=== PATIENT | female | born 1975 | race Caucasian/White ===

== ENCOUNTER 2018-11-12 19:23 | Emergency (ER) | payer OTHER, BC ==
[2018-11-12] MEDS ORDERED: Ketorolac 60 MG/2 ML SDV IM ONE (19:50)
--- NOTE | 2018-11-12 19:54 | EDM.PDOC ---
ED HPI GENERAL MEDICAL PROBLEM - General Chief Complaint: Back Pain or Injury Stated Complaint: PT KATERIN BACK Time Seen by Provider: 11/12/18 19:44 - History of Present Illness INITIAL COMMENTS - FREE TEXT/NARRATIVE: HISTORY AND PHYSICAL: History of present illness: The patient is a 43-year-old female who presents from work after she was doing some lifting and felt a pop and pain in her mid to upper lower back. She says she has had backaches before but this was different and she is concerned. The pain is radiating up and down her spine but is more localized in the lower thoracic area. She has no chest pain or shortness of breath no neurosensory changes or weakness in her arms and legs and no bowel or bladder disturbances. She was not struck by anything nor did she fall. She has not taken anything for pain for this prior to coming here. She has a history of a bilateral tubal ligation and she says she was in her usual state of good health prior to these events Review of systems: As per history of present illness and below otherwise all systems reviewed and negative. Past medical history: As per history of present illness and as reviewed below otherwise noncontributory. Surgical history: As per history of present illness and as reviewed below otherwise noncontributory. Social history: No reported history of drug or alcohol abuse. Family history: As per history of present illness and as reviewed below otherwise noncontributory. Physical exam: General: Well-developed well-nourished female who is nontoxic and ambulated into the ED without assistance. Vital signs were noted by me HEENT: Atraumatic, normocephalic, negative for conjunctival pallor or scleral icterus, mucous membranes moist, throat clear, neck supple, nontender, trachea midline. Lungs: Clear to auscultation, breath sounds equal bilaterally, chest nontender. Heart: S1S2, regular rate and rhythm no overt murmurs Abdomen: Soft, nondistended, nontender. NABS Negative for costovertebral tenderness. Pelvis: Deferred Genitourinary: Deferred. Rectal: Deferred. Extremities: Atraumatic, negative for cords or calf pain. Neurovascular unremarkable. Neuro: Awake, alert, oriented. Cranial nerves II through XII unremarkable. Cerebellum unremarkable. Motor and sensory unremarkable throughout. Exam nonfocal. Dorsi and plantar flexion is intact 5/5 inclusive of the great toe and tone is normal throughout all extremities. There are no deficits or lateralizing signs. Back: There are no midline step-offs or defects of the thoracic or lumbar spine no posterior or posterior pelvis tenderness. There is some bilateral paraspinal tenderness and midline tenderness in the lower thoracic and upper lumbar area without defects deformities or soft tissue changes. Diagnostics: Thoracic and lumbar spine x-rays Therapeutics: Toradol Impression: Acute back strain/musculoskeletal sprain Definitive disposition and diagnosis as appropriate pending reevaluation and review of above. Back Pain Score (Numeric/FACES): 7 - Related Data Allergies Allergy/AdvReac Type Severity Reaction Status Date / Time No Known Allergies Allergy Verified 11/12/18 19:44 Home Meds: Home Meds . [No Known Home Meds] 11/12/18 [History] ED ROS GENERAL - Review of Systems Review Of Systems: ROS reveals no pertinent complaints other than HPI. ED EXAM, GENERAL - Physical Exam Exam: See Below (See dictation) Course - Vital Signs Last Recorded V/S: Last Vital Signs Temp 36.8 C 11/12/18 19:40 Pulse 80 11/12/18 19:40 Resp BP 133/79 11/12/18 19:40 Pulse Ox 97 11/12/18 19:40 - Orders/Labs/Meds Meds: Medications Discontinued Medications Generic Name Dose Route Start Last Admin Trade Name Dimitri PRN Reason Stop Dose Admin Ketorolac Tromethamine 60 mg 11/12/18 19:50 11/12/18 20:01 Toradol IM 11/12/18 19:51 60 mg ONETIME ONE Administration Departure - Departure Time of Disposition: 20:57 Disposition: Home, Self-Care 01 Condition: Good Clinical Impression: Musculoskeletal back pain Back pain Qualifiers: Back pain location: thoracic back pain Chronicity: acute Back pain laterality: unspecified Qualified Code(s): M54.6 - Pain in thoracic spine - Discharge Information Referrals: PCP,None [Primary Care Provider] - Forms: ED Department Discharge Additional Instructions: The following information is given to patients seen in the emergency department who are being discharged to home. This information is to outline your options for follow-up care. We provide all patients seen in our emergency department with a follow-up referral. The need for follow-up, as well as the timing and circumstances, are variable depending upon the specifics of your emergency department visit. If you don't have a primary care physician on staff, we will provide you with a referral. We always advise you to contact your personal physician following an emergency department visit to inform them of the circumstance of the visit and for follow-up with them and/or the need for any referrals to a consulting specialist. The emergency department will also refer you to a specialist when appropriate. This referral assures that you have the opportunity for followup care with a specialist. All of these measure are taken in an effort to provide you with optimal care, which includes your followup. Under all circumstances we always encourage you to contact your private physician who remains a resource for coordinating your care. When calling for followup care, please make the office aware that this follow-up is from your recent emergency room visit. If for any reason you are refused follow-up, please contact the [facility] emergency department at and ask to speak to the emergency department charge nurse. [facility] Primary care- Internal Medicine and Family [place] [phone] Use ice on the area for the next 24 hours and then alternate ice and heat subsequently. His medications you have been given from [facility], diclofenac and Flexeril for the discomfort. Only take the muscle relaxer, Flexeril, when you're home as it may make you drowsy and he should not be at work out in about or driving a car. Please call and schedule a follow-up appointment with one of our clinic providers for reevaluation and further care and return to ER as needed next. The pain will slowly improve over the next several days to one week. Do all Activities more slowly as you do not want to re-aggravate the area.
--- NOTE | 2018-11-12 20:51 | CR ---
INDICATION: Pain. TECHNIQUE: Two views. IMPRESSION: Mild dextroscoliosis centered T8. No fracture. No bone lesion. Lateral alignment is anatomic. Dictated by Byron Limon MD @ Nov 12 2018 8:48PM Signed by Dr. Byron Limon @ Nov 12 2018 8:48PM
--- NOTE | 2018-11-12 20:55 | CR ---
INDICATION: Back pain TECHNIQUE: Lumbar spine 3 view COMPARISON: None FINDINGS: Bones: Moderate rotoscoliosis. Alignment is otherwise within normal limits. No fracture or bone lesion. Joints: Disc spaces and facets are unremarkable. Soft tissues: Unremarkable. IMPRESSION: Moderate rotoscoliosis. Otherwise unremarkable lumbar spine. Dictated by Abe Baker MD @ Nov 12 2018 8:53PM Signed by Dr. Abe Baker @ Nov 12 2018 8:54PM
== END 2018-11-12 21:21 | disposition home or self-care (01) ==
LOC: MW.ED 19:23
DX: M54.5 Low back pain (principal)
CPT/HCPCS: 72070; 72100; 96372; 99283; J1885

== ENCOUNTER 2019-08-20 17:17 | Emergency (ER) | payer OTHER, BC ==
[2019-08-20] MEDS ORDERED: Sodium Chloride 0.9% 2.5 ML Syringe FLUSH PRN (17:41)
[2019-08-20] MEDS ORDERED: Sodium Chloride 0.9% 10 ML Syringe FLUSH PRN (17:41)
[2019-08-20] MEDS ORDERED: Sodium Chloride 0.9% 1,000 ML IV ONE (17:41)
--- NOTE | 2019-08-20 17:42 | EDM.PDOC ---
ED HPI GENERAL MEDICAL PROBLEM - General Chief Complaint: Back Pain or Injury Stated Complaint: LEFT BACK PAIN Time Seen by Provider: 08/20/19 17:41 Source of Information: Reports: Patient History Limitations: Reports: No Limitations - History of Present Illness INITIAL COMMENTS - FREE TEXT/NARRATIVE: HISTORY AND PHYSICAL: History of present illness: Patient is a 44-year-old female presents to the ED with complaint of left flank pain. Patient states this morning she was having dull left mid back pain and states it progressively became more severe and radiating to her left upper abdomen. She states the pain is causing her to become nauseous but denies vomiting or diarrhea. She states she had a normal nonbloody bowel movement this morning. She states the pain is worse with a deep breath but denies chest pain, cough, shortness of breath, fevers, chills. She reports history of and tubal ligation. Smokes 1/2 ppd x 20+ years. Drinks 1-2 beers daily. Denies significant past medical history. Review of systems: As per history of present illness and below otherwise all systems reviewed and negative. Past medical history: As per history of present illness and as reviewed below otherwise noncontributory. Surgical history: As per history of present illness and as reviewed below otherwise noncontributory. Social history: No reported history of drug or alcohol abuse. Family history: As per history of present illness and as reviewed below otherwise noncontributory. Physical exam: General: Patient sitting comfortably in no acute distress and nontoxic appearing HEENT: Atraumatic, normocephalic, pupils reactive, negative for conjunctival pallor or scleral icterus, mucous membranes moist, throat clear, neck supple, nontender, trachea midline. No meningeal signs. Lungs: Clear to auscultation, breath sounds equal bilaterally, left posterior and lateral tenderness to palpation. Heart: S1S2, regular, negative for clicks, rubs, or overt murmur. Abdomen: Mild LUQ tenderness to palpation. Soft, nondistended. Negative for masses or hepatosplenomegaly. Negative for costovertebral tenderness. No rigidity, rebound, guarding. Pelvis: Stable nontender. Genitourinary: Deferred. Rectal: Deferred. Skin: no rash appreciated Extremities: Atraumatic, negative for cords or calf pain. Neurovascular unremarkable. Neuro: Awake, alert, oriented. Cranial nerves II through XII unremarkable. Cerebellum unremarkable. Motor and sensory unremarkable throughout. Exam nonfocal. Notes: Diagnostics: CBC, CMP, lipase, UA Therapeutics: 1L NS IV Declined pain medication Prescriptions: Cipro, Tramadol Impression: UTI, abdominal pain Plan: Drink plenty of fluids and take antibiotic as directed. Alternate tylenol and motrin as needed, you may take tramadol as needed for severe pain Follow up with primary care provider Return to ED as needed as discussed Definitive disposition and diagnosis as appropriate pending reevaluation and review of above. Left Back Pain Score (Numeric/FACES): 8 - Related Data Allergies Allergy/AdvReac Type Severity Reaction Status Date / Time No Known Allergies Allergy Verified 08/20/19 17:21 Home Meds: Home Meds Ciprofloxacin HCl [Cipro] 500 mg PO BID 10 Days #20 tablet 08/20/19 [Rx] traMADol [Ultram] 50 mg PO Q6H PRN #12 tab 08/20/19 [Rx] Past Medical History HEENT History: Reports: None Cardiovascular History: Reports: None Respiratory History: Reports: None Gastrointestinal History: Reports: None [employer] History: Reports: Psychiatric History: Reports: Depression - Infectious Disease History Infectious Disease History: Reports: Chicken Pox - Past Surgical History Female Surgical History: Reports: Section, Tubal Ligation Social & Family History - Family History Family Medical History: Noncontributory - Tobacco Use Smoking Status *Q: Current Every Day Smoker Years of Tobacco use: 20 Packs/Tins Daily: 1 - Caffeine Use Caffeine Use: Reports: Coffee - Recreational Drug Use Recreational Drug Use: No ED ROS GENERAL - Review of Systems Review Of Systems: Comprehensive ROS is negative, except as noted in HPI. ED EXAM,LOWER BACK PAIN/INJURY - Physical Exam Exam: See Below (see dictation) Course - Vital Signs Last Recorded V/S: Last Vital Signs Temp 99.0 F 08/20/19 19:00 Pulse 71 08/20/19 19:00 Resp 18 08/20/19 19:00 BP 124/81 08/20/19 19:00 Pulse Ox 96 08/20/19 19:00 - Orders/Labs/Meds Orders: Active Orders 24 hr Category Date Time Status Sodium Chloride 0.9% [Saline Flush] Med 08/20/19 17:41 Active 10 ml FLUSH ASDIRECTED PRN Sodium Chloride 0.9% [Saline Flush] Med 08/20/19 17:41 Active 2.5 ml FLUSH ASDIRECTED PRN Saline Lock Insert [OM.PC] Stat Oth 08/20/19 17:41 Ordered Medication Orders Sodium Chloride (Saline Flush) 10 ml FLUSH ASDIRECTED PRN PRN Reason: Keep Vein Open Last Admin: 08/20/19 19:01 Dose: 10 ml Sodium Chloride (Saline Flush) 2.5 ml FLUSH ASDIRECTED PRN PRN Reason: Keep Vein Open Last Admin: 08/20/19 19:01 Dose: 2.5 ml Labs: Laboratory Tests 08/20/19 08/20/19 08/20/19 Range/Units 17:27 17:56 17:56 WBC 8.08 (4.0-11.0) K/uL RBC 4.85 (4.30-5.90) M/uL Hgb 16.2 H (12.0-16.0) g/dL Hct 46.4 H (36.0-46.0) % MCV 95.7 (80.0-98.0) fL MCH 33.4 H (27.0-32.0) pg MCHC 34.9 (31.0-37.0) g/dL RDW Std Deviation 46.2 (28.0-62.0) fl RDW Coeff of Ja 13 (11.0-15.0) % Plt Count 198 (150-400) K/uL MPV 9.70 (7.40-12.00) fL Neut % (Auto) 61.2 (48.0-80.0) % Lymph % (Auto) 33.2 (16.0-40.0) % Lipscomb % (Auto) 4.6 (0.0-15.0) % Eos % (Auto) 0.9 (0.0-7.0) % Baso % (Auto) 0.1 (0.0-1.5) % Neut # (Auto) 5.0 (1.4-5.7) K/uL Lymph # (Auto) 2.7 H (0.6-2.4) K/uL Lipscomb # (Auto) 0.4 (0.0-0.8) K/uL Eos # (Auto) 0.1 (0.0-0.7) K/uL Baso # (Auto) 0.0 (0.0-0.1) K/uL Nucleated RBC % 0.0 /100WBC Nucleated RBCs # 0 K/uL Sodium 143 (136-145) mmol/L Potassium 4.0 (3.5-5.1) mmol/L Chloride 104 (98-107) mmol/L Carbon Dioxide 26.3 (21.0-32.0) mmol/L BUN 15 (7.0-18.0) mg/dL Creatinine 0.9 (0.6-1.0) mg/dL Est Cr Clr Drug Dosing 84.23 mL/min Estimated GFR (MDRD) > 60.0 ml/min Glucose 94 (74-106) mg/dL Calcium 9.4 (8.5-10.1) mg/dL Total Bilirubin 0.6 (0.2-1.0) mg/dL AST 18 (15-37) IU/L ALT 25 (14-63) IU/L Alkaline Phosphatase 55 (46-116) U/L Total Protein 7.5 (6.4-8.2) g/dL Albumin 4.4 (3.4-5.0) g/dL Globulin 3.1 (2.6-4.0) g/dL Albumin/Globulin Ratio 1.4 (0.9-1.6) Lipase 81 (73-393) U/L Urine Color YELLOW Urine Appearance HAZY Urine pH 5.5 (5.0-8.0) Ur Specific Kopperl >= 1.030 (1.001-1.035) Urine Protein NEGATIVE (NEGATIVE) mg/dL Urine Glucose (UA) NEGATIVE (NEGATIVE) mg/dL Urine Ketones TRACE H (NEGATIVE) mg/dL Urine Occult Blood LARGE H (NEGATIVE) Urine Nitrite NEGATIVE (NEGATIVE) Urine Bilirubin SMALL H (NEGATIVE) Urine Ictotest NEGATIVE Urine Urobilinogen 0.2 (<2.0) EU/dL Ur Leukocyte Esterase NEGATIVE (NEGATIVE) Urine RBC 5-10 (0-2/HPF) Urine WBC 0-3 (0-5/HPF) Ur Epithelial Cells FEW (NONE-FEW) Urine Bacteria 1+ H (NEGATIVE) Urine Mucus LIGHT (NONE-MOD) Meds: Medications Generic Name Dose Route Start Last Admin Trade Name Freq PRN Reason Stop Dose Admin Sodium Chloride 10 ml 08/20/19 17:41 08/20/19 19:01 Saline Flush FLUSH 10 ml ASDIRECTED PRN Administration Keep Vein Open Sodium Chloride 2.5 ml 08/20/19 17:41 08/20/19 19:01 Saline Flush FLUSH 2.5 ml ASDIRECTED PRN Administration Keep Vein Open Discontinued Medications Generic Name Dose Route Start Last Admin Trade Name Freq PRN Reason Stop Dose Admin Sodium Chloride 1,000 mls @ 999 mls/hr 08/20/19 17:41 08/20/19 17:59 Normal Saline IV 08/20/19 18:41 999 mls/hr STAT ONE Administration Departure - Departure Time of Disposition: 19:47 Disposition: Home, Self-Care 01 Condition: Good Clinical Impression: UTI (urinary tract infection), Abdominal pain - Discharge Information Referrals: PCP,None [Primary Care Provider] - Forms: ED Department Discharge Additional Instructions: The following information is given to patients seen in the emergency department who are being discharged to home. This information is to outline your options for follow-up care. We provide all patients seen in our emergency department with a follow-up referral. The need for follow-up, as well as the timing and circumstances, are variable depending upon the specifics of your emergency department visit. If you don't have a primary care physician on staff, we will provide you with a referral. We always advise you to contact your personal physician following an emergency department visit to inform them of the circumstance of the visit and for follow-up with them and/or the need for any referrals to a consulting specialist. The emergency department will also refer you to a specialist when appropriate. This referral assures that you have the opportunity for follow-up care with a specialist. All of these measure are taken in an effort to provide you with optimal care, which includes your follow-up. Under all circumstances we always encourage you to contact your private physician who remains a resource for coordinating your care. When calling for follow-up care, please make the office aware that this follow-up is from your recent emergency room visit. If for any reason you are refused follow-up, please contact the [facility] Emergency Department at and asked to speak to the emergency department charge nurse. [facility] Primary Care [address] [place], [place] [phone] [facility] [address] [place] [address] Drink plenty of fluids and take antibiotic as directed. Alternate tylenol and motrin as needed, you may take tramadol as needed for severe pain Follow up with primary care provider Return to ED as needed as discussed Sepsis Event Note - Evaluation Sepsis Screening Result: No Definite Risk - Focused Exam Vital Signs: Vital Signs Temp Pulse Resp BP Pulse Ox 08/20/19 19:00 99.0 F 71 18 124/81 96 08/20/19 17:22 97.3 F 86 20 137/87 96 Date Exam was Performed: 08/20/19 Time Exam was Performed: 19:44 - My Orders Last 24 Hours: My Active Orders 08/20/19 17:41 Sodium Chloride 0.9% [Saline Flush] 10 ml FLUSH ASDIRECTED PRN Sodium Chloride 0.9% [Saline Flush] 2.5 ml FLUSH ASDIRECTED PRN Saline Lock Insert [OM.PC] Stat - Assessment/Plan Last 24 Hours: My Active Orders 08/20/19 17:41 Sodium Chloride 0.9% [Saline Flush] 10 ml FLUSH ASDIRECTED PRN Sodium Chloride 0.9% [Saline Flush] 2.5 ml FLUSH ASDIRECTED PRN Saline Lock Insert [OM.PC] Stat
[2019-08-20 18:27] LABS: BLOOD UREA NITROGEN,BUN 15 mg/dL (7.0-18.0); CARBON DIOXIDE,CO2 26.3 mmol/L (21.0-32.0); CHLORIDE,CL 104 mmol/L (98-107); GLUCOSE RANDOM 94 mg/dL (74-106); LIPASE 81 U/L (73-393); SODIUM,NA 143 mmol/L (136-145)
--- NOTE | 2019-08-20 19:28 | CT ---
CT abdomen and pelvis Technique: Multiple axial sections were obtained from above the dome of the diaphragm inferiorly through the pubic symphysis. Intravenous and oral contrast not utilized. Comparison: Previous CT abdomen and pelvis exam of 01/14/14. Findings: Visualized lung bases show nothing acute. Noncontrast appearance of the liver shows no discrete abnormality. Gallbladder contains no calcified gallstones. Spleen appears within normal limits. Adrenal glands show no discrete abnormality. Pancreas shows no discrete abnormality. Kidneys show no abnormal calcifications. No hydronephrosis is seen. Ureters show no dilatation or abnormal calcifications. Appendix is seen which is normal. No pelvic mass or adenopathy is appreciated. No free fluid or inflammatory change is identified. Bone window settings were reviewed which shows no acute osseous finding. Impression: 1. Nothing acute is appreciated on noncontrast CT study of the abdomen and pelvis. Diagnostic code #1 This report was dictated in [place] Standard Time
[2019-08-20] MEDS ORDERED: Ketorolac 30 MG/ML SDV IVPUSH ONE (19:45)
== END 2019-08-20 20:34 | disposition home or self-care (01) ==
LOC: MW.ED 17:17
DX: N39.0 Urinary tract infection, site not specified (principal); F17.210 Nicotine dependence, cigarettes, uncomplicated
CPT/HCPCS: 36415; 74176; 80053; 81001; 83690; 85025; 96361; 96374; 99284; J1885; J7030; 99283

== ENCOUNTER 2019-12-12 06:57 | Emergency (ER) | payer BC, OTHER ==
[2019-12-12] MEDS ORDERED: Insulin Regular, Human 100 Units/ML 10 ML Vial SUBCUT SCH (07:30)
--- NOTE | 2019-12-12 07:33 | EDM.PDOC ---
ED HPI GENERAL MEDICAL PROBLEM - General Chief Complaint: Lower Extremity Injury/Pain Stated Complaint: LEFT HEEL INJURY Time Seen by Provider: 12/12/19 07:22 Source of Information: Reports: Patient History Limitations: Reports: No Limitations - History of Present Illness INITIAL COMMENTS - FREE TEXT/NARRATIVE: This is a 44-year-old female presents to the emergency room chief complaint of left heel and foot pain. Patient was trying to kick a piece of wood in half last night. Patient was unable to kick the piece of wood and initially had minimal pain in her heel. Patient woke up this morning unable to walk secondary to pain. Patient has no other complaints. Onset: Today Duration: Day(s):, Getting Worse Location: Reports: Lower Extremity, Left Quality: Reports: Ache Severity: Moderate Improves with: Reports: None Worsens with: Reports: Movement Context: Reports: Trauma Left heel Pain Score (Numeric/FACES): 1 - Related Data Allergies Allergy/AdvReac Type Severity Reaction Status Date / Time No Known Allergies Allergy Verified 12/12/19 07:10 Home Meds: Home Meds . 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: Musculoskeletal History: Reports: None Neurological History: Reports: None Psychiatric History: Reports: Depression Endocrine/Metabolic History: Reports: None Hematologic History: Reports: None Immunologic History: Reports: None Oncologic (Cancer) History: Reports: None Dermatologic History: Reports: None - Infectious Disease History Infectious Disease History: Reports: None - Past Surgical History Head Surgeries/Procedures: Reports: None HEENT Surgical History: Reports: None Cardiovascular Surgical History: Reports: None Respiratory Surgical History: Reports: None GI Surgical History: Reports: None Female Surgical History: Reports: Section, Tubal Ligation Endocrine Surgical History: Reports: None Neurological Surgical History: Reports: None Musculoskeletal Surgical History: Reports: None Oncologic Surgical History: Reports: None Dermatological Surgical History: Reports: None Social & Family History - Family History Family Medical History: Noncontributory - Tobacco Use Smoking Status *Q: Current Every Day Smoker Years of Tobacco use: 20 Packs/Tins Daily: 0.5 - Caffeine Use Caffeine Use: Reports: Coffee, Energy Drinks, Soda, Tea - Recreational Drug Use Recreational Drug Use: No Review of Systems - Review of Systems Review Of Systems: See Below Constitutional: Reports: No Symptoms Eyes: Reports: No Symptoms Ears: Reports: No Symptoms Nose: Reports: No Symptoms Mouth/Throat: Reports: No Symptoms Respiratory: Reports: No Symptoms Cardiovascular: Reports: No Symptoms GI/Abdominal: Reports: No Symptoms Genitourinary: Reports: No Symptoms Musculoskeletal: Reports: Leg Pain Skin: Reports: No Symptoms Neurological: Reports: No Symptoms Psychiatric: Reports: No Symptoms ED EXAM, GENERAL - Physical Exam Exam: See Below (Patient had negative swelling to her heel. Patient has tenderness on palpation to her heel unable to bear weight. Patient has full range of motion distally to the injury. Patient has no trauma to her toes or any other part of her foot.) Exam Limited By: No Limitations General Appearance: Alert, WD/WN, Moderate Distress Eye Exam: Bilateral Eye: PERRL Ears: Normal External Exam, Hearing Grossly Normal Nose: Normal Inspection, No Blood Throat/Mouth: Normal Lips, Normal Teeth, Normal Gums, Normal Oropharynx, Normal Voice, No Airway Compromise Head: Atraumatic, Normocephalic Neck: Normal Inspection Respiratory/Chest: No Respiratory Distress, No Accessory Muscle Use Cardiovascular: Normal Peripheral Pulses, Regular Rate, Rhythm, No Edema, No JVD GI/Abdominal: Normal Bowel Sounds, Soft, Non-Tender, No Organomegaly, No Distention, No Abnormal Bruit, No Mass (Female) Exam: Deferred Rectal (Female) Exam: Deferred Back Exam: Normal Inspection, Full Range of Motion, NT Extremities: Leg Pain, Other (left foot pain on palpaation ) Neurological: Alert, Oriented, CN II-XII Intact, Normal Cognition, Normal Reflexes. No: No Motor/Sensory Deficits (Tested secondary to pain in her foot unable to ambulate) Psychiatric: Normal Affect, Normal Mood Skin Exam: Warm, Dry, Intact Lymphatic: No Adenopathy Course - Vital Signs Text/Narrative:: This is a 44-year-old female who presents to the emergency room chief complaint of left foot pain after kicking a board yesterday. Patient states she kicked it last night and this morning she was unable to walk. Patient denies any other problems. X-rays on the patient's foot and calcaneus are negative patient does exhibit pain on palpation Assessment on this patient is contusion to the heel and foot This patient is crutches for ambulation Inflammatory medications The foot for approximately 3 to 4 days Last Recorded V/S: Last Vital Signs Temp 96.2 F L 12/12/19 07:08 Pulse 86 12/12/19 07:08 Resp 18 12/12/19 07:08 BP 116/92 H 12/12/19 07:08 Pulse Ox 94 L 12/12/19 07:08 Departure - Departure Time of Disposition: 08:32 Disposition: Home, Self-Care 01 Condition: Good Clinical Impression: Contusion of foot or heel Qualifiers: Encounter type: initial encounter Laterality: left Qualified Code(s): S90.32XA - Contusion of left foot, initial encounter - Discharge Information Instructions: Contusion, [id number], Crutch Use, Adult, [id number], How to Use Cold Therapy Referrals: PCP,None [Primary Care Provider] - Forms: ED Department Discharge Additional Instructions: Patient is to use ice for the next 24 hours Is to use crutches for ambulation Patient is to take anti-inflammatories for pain management Sepsis Event Note - Evaluation Sepsis Screening Result: No Definite Risk - Focused Exam Vital Signs: Vital Signs Temp Pulse Resp BP Pulse Ox 12/12/19 07:08 96.2 F L 86 18 116/92 H 94 L Date Exam was Performed: 12/12/19 Time Exam was Performed: 08:29
--- NOTE | 2019-12-12 08:15 | CR ---
Left foot: 2 views of the left foot were obtained. Calcaneal spurs are again seen. Joint spaces are preserved. No discrete fracture or other bony abnormality is appreciated. Impression: 1. Calcaneal spurs are noted. 2. Nothing acute is appreciated on 2 view left foot exam. Diagnostic code #2 This report was dictated in MDT
--- NOTE | 2019-12-12 08:15 | CR ---
Left calcaneus: 2 views of the left calcaneus were obtained. Comparison: No prior calcaneus study. Plantar spur is noted. Spur noted at the attachment of the Achilles tendon to the calcaneus. Subtalar joint appears normal. No fracture or other bony abnormality is seen. Impression: 1. Calcaneal spurs. 2. Nothing acute is appreciated on 2 view left calcaneus study. Diagnostic code #2 This report was dictated in MDT
[2019-12-12] MEDS ORDERED: Ibuprofen 600 MG Tab PO ONE (08:36)
== END 2019-12-12 08:51 | disposition home or self-care (01) ==
LOC: MW.ED 06:57
DX: S90.32XA Contusion of left foot, initial encounter (principal); F17.210 Nicotine dependence, cigarettes, uncomplicated; W22.8XXA Striking against or struck by other objects, initial encounter
CPT/HCPCS: 73620; 73650; 99283; A9270

== ENCOUNTER 2020-05-01 12:55 | Emergency (ER) | payer SELFPAY ==
[2020-05-01] MEDS ORDERED: Ketorolac 15 MG/ML SDV IM ONE (13:38)
[2020-05-01] MEDS ORDERED: Sodium Chloride 0.9% 2.5 ML Syringe FLUSH PRN (13:38)
[2020-05-01] MEDS ORDERED: Sodium Chloride 0.9% 10 ML Syringe FLUSH PRN (13:38)
[2020-05-01] MEDS ORDERED: Phenazopyridine 200 MG Tab PO ONE (13:45)
--- NOTE | 2020-05-01 13:46 | EDM.PDOC ---
ED HPI GENERAL MEDICAL PROBLEM - General Chief Complaint: Genitourinary Problem Stated Complaint: PAIN AROUND KIDNEY Time Seen by Provider: 05/01/20 13:15 Source of Information: Reports: Patient History Limitations: Reports: No Limitations. Denies: Respiratory Distress - History of Present Illness INITIAL COMMENTS - FREE TEXT/NARRATIVE: 44F PMHx frequent UTI/pyelo presents for concern for UTI/pyelo. Patient states that yesterday she started having increased frequency of urination with some mild burning sensation. Woke up with L flank pain and worsening urinary frequency/dysuria. Feels simlar to prior episodes of pyelonephritis. 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 Denies fevers. Does note nausea but no vomiting. 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 History: Reports: None Neurological History: Reports: None Psychiatric History: Reports: Depression Endocrine/Metabolic History: Reports: None Hematologic History: Reports: None Immunologic History: Reports: None Oncologic (Cancer) History: Reports: None Dermatologic History: Reports: None - Infectious Disease History Infectious Disease History: Reports: Chicken Pox - Past Surgical History Head Surgeries/Procedures: Reports: None HEENT Surgical History: Reports: None Cardiovascular Surgical History: Reports: None Respiratory Surgical History: Reports: None GI Surgical History: Reports: None Female Surgical History: Reports: Section, Tubal Ligation Endocrine Surgical History: Reports: None Neurological Surgical History: Reports: None Musculoskeletal Surgical History: Reports: None Oncologic Surgical History: Reports: None Dermatological Surgical History: Reports: None Social & Family History - Family History Family Medical History: Noncontributory - Tobacco Use Smoking Status *Q: Current Every Day Smoker Years of Tobacco use: 20 Packs/Tins Daily: 0.5 - Caffeine Use Caffeine Use: Reports: Coffee - Recreational Drug Use Recreational Drug Use: No ED ROS GENERAL - Review of Systems Review Of Systems: Comprehensive ROS is negative, except as noted in HPI. ED EXAM, GI/ABD - Physical Exam Exam: See Below Exam Limited By: No Limitations General Appearance: Alert, WD/WN, No Apparent Distress Ears: Normal External Exam Nose: Normal Inspection Throat/Mouth: Normal Inspection, Normal Voice, No Airway Compromise Head: Atraumatic, Normocephalic Neck: Normal Inspection Respiratory/Chest: No Respiratory Distress, Lungs Clear, Normal Breath Sounds, No Accessory Muscle Use Cardiovascular: Normal Peripheral Pulses, Regular Rate, Rhythm GI/Abdominal Exam: Soft, Non-Tender, No Distention (Female) Exam: Other (+L CVA TTP, negative R CVA TTP) Extremities: Normal Inspection Neurological: Alert Psychiatric: Normal Affect, Normal Mood Course - Vital Signs Last Recorded V/S: Last Vital Signs Temp 97.7 F 05/01/20 13:34 Pulse 87 05/01/20 13:34 Resp 22 H 05/01/20 13:34 BP 134/75 05/01/20 13:34 Pulse Ox 94 L 05/01/20 13:34 - Orders/Labs/Meds Orders: Active Orders 24 hr Category Date Time Status Sodium Chloride 0.9% [Saline Flush] Med 05/01/20 13:38 Active 10 ml FLUSH ASDIRECTED PRN Sodium Chloride 0.9% [Saline Flush] Med 05/01/20 13:38 Active 2.5 ml FLUSH ASDIRECTED PRN cefTRIAXone [Rocephin in Dextrose,Iso-Osm 1 GM/50 ML] 1 Med 05/01/20 14:49 Ordered gm Premix Bag 1 bag IV ONETIME Saline Lock Insert [OM.PC] Stat Oth 05/01/20 13:39 Ordered Medication Orders Sodium Chloride (Saline Flush) 10 ml FLUSH ASDIRECTED PRN PRN Reason: Keep Vein Open Sodium Chloride (Saline Flush) 2.5 ml FLUSH ASDIRECTED PRN PRN Reason: Keep Vein Open Labs: Laboratory Tests 05/01/20 05/01/20 05/01/20 Range/Units 13:38 13:38 14:05 WBC 9.25 (4.0-11.0) K/uL RBC 4.78 (4.30-5.90) M/uL Hgb 15.4 (12.0-16.0) g/dL Hct 46.1 H (36.0-46.0) % MCV 96.4 (80.0-98.0) fL MCH 32.2 H (27.0-32.0) pg MCHC 33.4 (31.0-37.0) g/dL RDW Std Deviation 46.2 (28.0-62.0) fl RDW Coeff of Ja 13 (11.0-15.0) % Plt Count 220 (150-400) K/uL MPV 9.50 (7.40-12.00) fL Neut % (Auto) 66.2 (48.0-80.0) % Lymph % (Auto) 27.1 (16.0-40.0) % [place] % (Auto) 5.7 (0.0-15.0) % Eos % (Auto) 0.9 (0.0-7.0) % Baso % (Auto) 0.1 (0.0-1.5) % Neut # (Auto) 6.1 H (1.4-5.7) K/uL Lymph # (Auto) 2.5 H (0.6-2.4) K/uL [place] # (Auto) 0.5 (0.0-0.8) K/uL Eos # (Auto) 0.1 (0.0-0.7) K/uL Baso # (Auto) 0.0 (0.0-0.1) K/uL Nucleated RBC % 0.0 /100WBC Nucleated RBCs # 0 K/uL Sodium (136-145) mmol/L Potassium (3.5-5.1) mmol/L Chloride (98-107) mmol/L Carbon Dioxide (21.0-32.0) mmol/L BUN (7.0-18.0) mg/dL Creatinine (0.6-1.0) mg/dL Est Cr Clr Drug Dosing mL/min Estimated GFR (MDRD) ml/min Glucose (74-106) mg/dL Calcium (8.5-10.1) mg/dL Total Bilirubin (0.2-1.0) mg/dL AST (15-37) IU/L ALT (14-63) IU/L Alkaline Phosphatase (46-116) U/L Total Protein (6.4-8.2) g/dL Albumin (3.4-5.0) g/dL Globulin (2.6-4.0) g/dL Albumin/Globulin Ratio (0.9-1.6) Urine Color YELLOW Urine Appearance SLT CLOUDY Urine pH 6.0 (5.0-8.0) Ur Specific [place] 1.015 (1.001-1.035) Urine Protein 30 H (NEGATIVE) mg/dL Urine Glucose (UA) NEGATIVE (NEGATIVE) mg/dL Urine Ketones NEGATIVE (NEGATIVE) mg/dL Urine Occult Blood MODERATE H (NEGATIVE) Urine Nitrite POSITIVE H (NEGATIVE) Urine Bilirubin NEGATIVE (NEGATIVE) Urine Urobilinogen 0.2 (<2.0) EU/dL Ur Leukocyte Esterase LARGE H (NEGATIVE) Urine RBC 10-15 (0-2/HPF) Urine WBC TO NUMEROUS TO COUNT H (0-5/HPF) Ur Epithelial Cells FEW (NONE-FEW) Urine Bacteria 3+ H (NEGATIVE) Urine HCG, Qual NEGATIVE (NEGATIVE) 05/01/20 Range/Units 14:05 WBC (4.0-11.0) K/uL RBC (4.30-5.90) M/uL Hgb (12.0-16.0) g/dL Hct (36.0-46.0) % MCV (80.0-98.0) fL MCH (27.0-32.0) pg MCHC (31.0-37.0) g/dL RDW Std Deviation (28.0-62.0) fl RDW Coeff of Ja (11.0-15.0) % Plt Count (150-400) K/uL MPV (7.40-12.00) fL Neut % (Auto) (48.0-80.0) % Lymph % (Auto) (16.0-40.0) % [place] % (Auto) (0.0-15.0) % Eos % (Auto) (0.0-7.0) % Baso % (Auto) (0.0-1.5) % Neut # (Auto) (1.4-5.7) K/uL Lymph # (Auto) (0.6-2.4) K/uL [place] # (Auto) (0.0-0.8) K/uL Eos # (Auto) (0.0-0.7) K/uL Baso # (Auto) (0.0-0.1) K/uL Nucleated RBC % /100WBC Nucleated RBCs # K/uL Sodium 140 (136-145) mmol/L Potassium 4.1 (3.5-5.1) mmol/L Chloride 105 (98-107) mmol/L Carbon Dioxide 23.1 (21.0-32.0) mmol/L BUN 13 (7.0-18.0) mg/dL Creatinine 0.9 (0.6-1.0) mg/dL Est Cr Clr Drug Dosing 84.23 mL/min Estimated GFR (MDRD) > 60.0 ml/min Glucose 77 (74-106) mg/dL Calcium 9.0 (8.5-10.1) mg/dL Total Bilirubin 0.5 (0.2-1.0) mg/dL AST 15 (15-37) IU/L ALT 33 (14-63) IU/L Alkaline Phosphatase 69 (46-116) U/L Total Protein 7.2 (6.4-8.2) g/dL Albumin 4.2 (3.4-5.0) g/dL Globulin 3.0 (2.6-4.0) g/dL Albumin/Globulin Ratio 1.4 (0.9-1.6) Urine Color Urine Appearance Urine pH (5.0-8.0) Ur Specific [place] (1.001-1.035) Urine Protein (NEGATIVE) mg/dL Urine Glucose (UA) (NEGATIVE) mg/dL Urine Ketones (NEGATIVE) mg/dL Urine Occult Blood (NEGATIVE) Urine Nitrite (NEGATIVE) Urine Bilirubin (NEGATIVE) Urine Urobilinogen (<2.0) EU/dL Ur Leukocyte Esterase (NEGATIVE) Urine RBC (0-2/HPF) Urine WBC (0-5/HPF) Ur Epithelial Cells (NONE-FEW) Urine Bacteria (NEGATIVE) Urine HCG, Qual (NEGATIVE) Meds: Medications Generic Name Dose Route Start Last Admin Trade Name Freq PRN Reason Stop Dose Admin Sodium Chloride 10 ml 05/01/20 13:38 Saline Flush FLUSH ASDIRECTED PRN Keep Vein Open Sodium Chloride 2.5 ml 05/01/20 13:38 Saline Flush FLUSH ASDIRECTED PRN Keep Vein Open Discontinued Medications Generic Name Dose Route Start Last Admin Trade Name Freq PRN Reason Stop Dose Admin Ketorolac Tromethamine 15 mg 05/01/20 13:38 05/01/20 14:06 Toradol IM 05/01/20 13:39 15 mg ONETIME ONE Administration Ondansetron HCl 4 mg 05/01/20 13:52 Zofran IVPUSH 05/01/20 13:53 ONETIME ONE Ondansetron HCl 4 mg 05/01/20 14:12 05/01/20 14:18 Zofran Odt PO 05/01/20 14:13 4 mg ONETIME ONE Administration Phenazopyridine HCl 200 mg 05/01/20 13:45 05/01/20 14:05 Pyridium PO 05/01/20 13:46 200 mg ONETIME ONE Administration - Re-Assessments/Exams Free Text/Narrative Re-Assessment/Exam: 05/01/20 13:52 Will treat pain, will give zofran for nausea. Will give azo for bladder analgesia. Will f/u CBC/BMP and UA and dispo accordingly. Departure - Departure Time of Disposition: 14:51 Disposition: Home, Self-Care 01 Clinical Impression: UTI, Urinary tract infectious disease, Pyelonephritis - Discharge Information Prescriptions: levoFLOXacin [Levaquin] 750 mg PO DAILY 7 Days #7 tab Instructions: Pyelonephritis, Adult Referrals: PCP,None [Primary Care Provider] - Forms: ED Department Discharge Additional Instructions: The following information is given to patients seen in the emergency department who are being discharged to home. This information is to outline your options for follow-up care. We provide all patients seen in our emergency department with a follow-up referral. The need for follow-up, as well as the timing and circumstances, are variable depending upon the specifics of your emergency department visit. If you don't have a primary care physician on staff, we will provide you with a referral. We always advise you to contact your personal physician following an emergency department visit to inform them of the circumstance of the visit and for follow-up with them and/or the need for any referrals to a consulting specialist. The emergency department will also refer you to a specialist when appropriate. This referral assures that you have the opportunity for follow-up care with a specialist. All of these measure are taken in an effort to provide you with optimal care, which includes your follow-up. Under all circumstances we always encourage you to contact your private physician who remains a resource for coordinating your care. When calling for follow-up care, please make the office aware that this follow-up is from your recent emergency room visit. If for any reason you are refused follow-up, please contact the [facility] Emergency Department at and asked to speak to the emergency department charge nurse. Please follow up with your primary care physician. If you do not have a primary care physician, see below: [facility] [address], [place] [address] My [facility] [address] [place] [address] Sepsis Event Note (ED) - Evaluation Sepsis Screening Result: No Definite Risk - Focused Exam Vital Signs: Vital Signs Temp Pulse Resp BP Pulse Ox 05/01/20 13:34 97.7 F 87 22 H 134/75 94 L - My Orders Last 24 Hours: My Active Orders 05/01/20 13:38 Sodium Chloride 0.9% [Saline Flush] 10 ml FLUSH ASDIRECTED PRN Sodium Chloride 0.9% [Saline Flush] 2.5 ml FLUSH ASDIRECTED PRN 05/01/20 13:39 Saline Lock Insert [OM.PC] Stat 05/01/20 14:49 cefTRIAXone [Rocephin in Dextrose,Iso-Osm 1 GM/50 ML] 1 gm Premix Bag 1 bag IV ONETIME - Assessment/Plan Last 24 Hours: My Active Orders 05/01/20 13:38 Sodium Chloride 0.9% [Saline Flush] 10 ml FLUSH ASDIRECTED PRN Sodium Chloride 0.9% [Saline Flush] 2.5 ml FLUSH ASDIRECTED PRN 05/01/20 13:39 Saline Lock Insert [OM.PC] Stat 05/01/20 14:49 cefTRIAXone [Rocephin in Dextrose,Iso-Osm 1 GM/50 ML] 1 gm Premix Bag 1 bag IV ONETIME
[2020-05-01] MEDS ORDERED: Ondansetron 4 MG/2 ML SDV IVPUSH ONE (13:52)
[2020-05-01] MEDS ORDERED: Ondansetron 4 MG Tab.DIS PO ONE (14:12)
[2020-05-01 14:40] LABS: BLOOD UREA NITROGEN,BUN 13 mg/dL (7.0-18.0); CARBON DIOXIDE,CO2 23.1 mmol/L (21.0-32.0); CHLORIDE,CL 105 mmol/L (98-107); GLUCOSE RANDOM 77 mg/dL (74-106); POTASSIUM,K 4.1 mmol/L (3.5-5.1); SODIUM,NA 140 mmol/L (136-145)
[2020-05-01] MEDS ORDERED: cefTRIAXone 1 GM in Premix Bag 1 BAG IV ONE (14:49)
[2020-05-01] MEDS ORDERED: cefTRIAXone 1 GM in Lidocaine 1% 4 ML IM ONE (14:55)
== END 2020-05-01 15:20 | disposition home or self-care (01) ==
LOC: MW.ED 12:55
DX: N12 Tubulo-interstitial nephritis, not specified as acute or chronic (principal); F17.210 Nicotine dependence, cigarettes, uncomplicated
CPT/HCPCS: 36415; 80053; 81001; 81025; 85025; 96372; 99284; A9270; J0696; J1885; J2001; 99283

== ENCOUNTER 2022-03-08 07:11 | Emergency (ER) | payer BC ==
[2022-03-08] MEDS ORDERED: Ketorolac 30 MG/ML SDV IVPUSH ONE (07:45)
[2022-03-08] MEDS ORDERED: Pantoprazole 40 MG in Sodium Chloride 0.9% 10 ML IVPUSH STA (07:46)
[2022-03-08 08:34] LABS: POTASSIUM,K 3.7 mmol/L (3.5-5.1)
[2022-03-08] MEDS ORDERED: Alum Hydro/Mag Hydro/Simeth XS 15 ML, Lidocaine 2% 5 ML PO STA ×2 (08:55)
[2022-03-08] MEDS ORDERED: Iopamidol 755 MG/ML 500 ML Multipack Bottle IVPUSH STA (09:46)
[2022-03-08] MEDS ORDERED: Ondansetron 4 MG/2 ML SDV IVPUSH ONE (09:55)
[2022-03-08] MEDS ORDERED: Morphine 4 MG/ML VIAL IVPUSH ONE (09:55)
== END 2022-03-08 11:02 | disposition home or self-care (01) ==
LOC: MW.ED 07:11
DX: R09.1 Pleurisy (principal); J40 Bronchitis, not specified as acute or chronic
CPT/HCPCS: 36415; 71045; 71275; 80053; 83690; 84484; 85025; 85379; 93005; 96374; 96375; 99284; A9270; C9113; J1885; J2270; J2405; J3490; Q9967

== ENCOUNTER 2022-05-20 06:29 | Day surgery (SDC) | payer BC ==
[2022-05-20] MEDS: Lactated Ringers 1,000 ML IV SCH (07:05)
[2022-05-20] MEDS ORDERED: fentaNYL 100 MCG/2 ML SDV ONE (07:07)
[2022-05-20] MEDS ORDERED: Propofol 200 MG/20 ML SDV ONE (07:07)
[2022-05-20] MEDS ORDERED: Rocuronium Bromide 50 MG/5 ML Syringe ONE (07:08)
[2022-05-20] MEDS ORDERED: Dexmedetomidine 200 MCG/2 ML SDV ONE ×2 (07:08→10:17)
[2022-05-20] MEDS ORDERED: Water For Injection, Sterile 20 ML ONE (07:22)
[2022-05-20] MEDS ORDERED: Lidocaine 2% 11 ML Jelly Filled Syringe ONE (07:55)
[2022-05-20] MEDS ORDERED: Lidocaine 1% 5 ML VIAL ONE (07:57)
[2022-05-20] MEDS ORDERED: Morphine 2 MG/ML SYRINGE IVPUSH PRN (08:02)
[2022-05-20] MEDS ORDERED: Naloxone 0.4 MG/ML SDV IVPUSH PRN (08:02)
[2022-05-20] MEDS ORDERED: Metoclopramide 10 MG/2 ML SDV IVPUSH PRN (08:02)
[2022-05-20] MEDS ORDERED: HYDROmorphone 1 MG/ML Syringe IVPUSH PRN (08:02)
[2022-05-20] MEDS ORDERED: Albuterol 0.083% 2.5 MG/3 ML Neb Soln NEB PRN (08:02)
[2022-05-20] MEDS ORDERED: fentaNYL 50 MCG/ML SDV IVPUSH PRN (08:02)
[2022-05-20] MEDS ORDERED: Ondansetron 4 MG/2 ML SDV IVPUSH PRN (08:02)
[2022-05-20] MEDS ORDERED: Dexamethasone 4 MG/ML 5 ML MDV ONE (08:15)
[2022-05-20] MEDS ORDERED: Fluorescein 5 ML Vial ONE (08:23)
[2022-05-20] MEDS ORDERED: Ketorolac 30 MG/ML SDV ONE ×2 (08:46→10:17)
[2022-05-20] MEDS ORDERED: Ondansetron 4 MG/2 ML SDV ONE ×2 (09:21→10:17)
[2022-05-20] MEDS: Acetaminophen/HYDROcodone 325-5 MG Tab PO ONE (09:28)
[2022-05-20] MEDS ORDERED: Glycopyrrolate 0.2 MG/ML SDV ONE (10:17)
[2022-05-20] MEDS ORDERED: ePHEDrine 50 MG/ML SDV ONE (10:17)
[2022-05-20] MEDS ORDERED: Phenylephrine HCl In 0.9% NaCl 1 MG/10 ML Vial ONE (10:17)
[2022-05-20] MEDS ORDERED: Sugammadex Sodium 200 MG/2 ML VIAL ONE (10:17)
[2022-05-20] MEDS ORDERED: Lidocaine 2% 5 ML SDV ONE (10:17)
[2022-05-20] MEDS ORDERED: Vasopressin 20 Units/1 ML MDV ONE (10:17)
[2022-05-20] MEDS ORDERED: Hydrocortisone Sodium Succinate 100 MG/2 ML SDV ONE (10:18)
[2022-05-20] MEDS ORDERED: Water For Injection, Sterile 60 ML ONE (10:18)
[2022-05-20] MEDS ORDERED: Promethazine 25 MG/ML SDV ONE (10:18)
[2022-05-20] MEDS ORDERED: Heparin Sodium 5,000 Units/ML Vial ONE (10:18)
[2022-05-20] MEDS ORDERED: ceFAZolin 1 GM Vial ONE (10:18)
[2022-05-20] MEDS ORDERED: Magnesium Sulfate (4.06 MEQ/ML) 5 GM/10 ML SDV ONE (10:18)
[2022-05-20] MEDS ORDERED: HYDROmorphone 2 MG/ML Syringe ONE (10:28)
== END 2022-05-20 09:50 | disposition home or self-care (01) ==
LOC: MW.SDS 06:29
PROVIDERS: ATTEND Obstetrics & Gynecology
DX: N39.3 Stress incontinence (female) (male) (principal); F32.A Depression, unspecified; Z98.890 Other specified postprocedural states; Z79.899 Other long term (current) drug therapy
CPT/HCPCS: 00860; 81025; A9270-GY; C1771; J0690; J1100; J1170; J1644; J1720; J1885; J2405; J2550; J2704; J3010; J3475; J3490; J7120

== ENCOUNTER 2023-11-04 15:59 | Emergency (ER) | payer BC ==
[2023-11-04] MEDS: Sodium Chloride 0.9% 1,000 ML IV STA (18:35)
[2023-11-04] MEDS: Morphine 4 MG/ML Syringe IVPUSH STA (18:36)
[2023-11-04] MEDS: Ondansetron 4 MG/2 ML SDV IVPUSH STA (18:36)
[2023-11-04] MEDS: Sodium Chloride 0.9% 10 ML Syringe FLUSH PRN (18:36)
[2023-11-04] MEDS: Sodium Chloride 0.9% 2.5 ML Syringe FLUSH PRN (18:36)
[2023-11-04] MEDS: Iopamidol 755 MG/ML 500 ML Multipack Bottle IVPUSH STA (18:58)
== END 2023-11-04 20:24 | disposition home or self-care (01) ==
LOC: MW.ED 15:59
DX: R10.31 Right lower quadrant pain (principal); F17.210 Nicotine dependence, cigarettes, uncomplicated; Z79.899 Other long term (current) drug therapy; Z75.8 Other problems related to medical facilities and other health care; R10.2 Pelvic and perineal pain
CPT/HCPCS: 36415; 74177; 76856; 80053; 81001; 81025; 85025; 87480; 87510; 87660; 96361; 96374; 96375; 99284; J2270; J2405; J3490; J7030; Q9967

== ENCOUNTER 2025-01-05 06:06 | Emergency (ER) | payer BC, OTHER ==
[2025-01-05 06:21] LABS: APPEARANCE,URINE CLOUDY; BILIRUBIN,URINE NEGATIVE (NEGATIVE); COLOR,URINE YELLOW; GLUCOSE,URINE NEGATIVE (NEGATIVE); KETONES,URINE NEGATIVE (NEGATIVE); LEUKOCYTE ESTERASE,URINE MODERATE (NEGATIVE); NITRITE,URINE NEGATIVE (NEGATIVE); OCCULT BLOOD,URINE LARGE (NEGATIVE); PROTEIN,URINE 100 mg/dL (NEGATIVE); UROBILINOGEN,URINE 0.2 EU/dL (<2.0)
[2025-01-05 06:27] LABS: BACTERIA,URINE 1+ (NEGATIVE); EPITHELIAL CELLS,URINE RARE (NONE-FEW); WBC,URINE TOO NUMEROUS TO CT (0-5/HPF)
== END 2025-01-05 06:47 | disposition home or self-care (01) ==
LOC: MW.ED 06:06
DX: N39.0 Urinary tract infection, site not specified (principal); R30.0 Dysuria; R03.0 Elevated blood-pressure reading, without diagnosis of hypertension
CPT/HCPCS: 81001; 81025; 87086; 87088; 87186; 99283

== ENCOUNTER 2025-03-01 11:02 | Emergency (ER) | payer SELFPAY ==
[2025-03-01 11:24] LABS: APPEARANCE,URINE SLT CLOUDY; GLUCOSE,URINE NEGATIVE (NEGATIVE); OCCULT BLOOD,URINE TRACE-INTACT (NEGATIVE)
[2025-03-01 11:41] LABS: EPITHELIAL CELLS,URINE FEW (NONE-FEW)
== END 2025-03-01 11:57 | disposition home or self-care (01) ==
LOC: MW.ED 11:02
DX: N39.0 Urinary tract infection, site not specified (principal); Z79.899 Other long term (current) drug therapy; Z75.3 Unavailability and inaccessibility of health-care facilities
CPT/HCPCS: 81001; 87086; 87088; 87186; 99282; 99283